=== PATIENT | female | born 1995 | race Caucasian/White ===

== ENCOUNTER 2023-09-30 14:57 | Emergency (ER) | payer OTHER, SELFPAY ==
[2023-09-30 14:59] VITALS: BP 148/83; PULSE 101; RESP 18; TEMP 36.4; O2SAT 100
--- NOTE | 2023-09-30 15:24 | US_ITS ---
INDICATION: pain EXAMINATION: Ultrasound US OB Transvaginal TECHNIQUE: Transvaginal pelvic ultrasound was performed. Grayscale, spectral waveform, and color flow Doppler evaluation of the adnexa. COMPARISON: None. LMP: [08/16/2023 correlating with 6 weeks 3 days gestation estimated delivery date 05/22/2024 Beta-hC FINDINGS: UTERUS: Anteverted uterus 9.2 x 4.6 x 5.9 cm with unremarkable myometrium. Uterine anatomy is difficult to ascertain, favor arcuate over bicornuate on provided images. Small anechoic nabothian cysts RIGHT OVARY: 2.7 x 1.8 x 2.0 cm. Normal parenchymal appearance. Limited Doppler assessment with appreciable peripheral Doppler vascular flow.. LEFT OVARY: 3.3 x 2.2 x 2.9 cm with normal small follicles and preserved internal Doppler vascular flow.. FREE FLUID: None. INTRAUTERINE GESTATIONAL SAC(s) (size/shape): Single fundal gestational sac at the right uterine fundus with surrounding myometrium of 1 cm or greater. Mean sac diameter 0.77 cm correlating with 5 weeks 4 days gestation and estimated delivery date 05/28/2024 YOLK SAC: Single normal yolk sac POLE: No pole is seen.. HEART MOTION: N/A . PLACENTA: Not visualized due to age. SUBCHORIONIC HEMORRHAGE: None. AMNIOTIC FLUID: Qualitatively normal. US/Transvaginal w/Preg US IMPRESSION: Single intrauterine with normal yolk sac. pole not yet seen. dating by mean sac diameter is slightly low but concordant with provided dating. Consider follow-up ultrasound in one to 2 weeks for pole cyst. Normal ovaries. Electronically Signed: Rajan Sanders MD at 17:50 EDT ,
--- NOTE | 2023-09-30 15:25 | ED.VIS.FEGU ---
HPI HPI - Female History of Present Illness Chief Complaint: Informant: patient and spouse/S.O. Narrative Narrative: 28-year-old female presenting to the emergency room abdominal. Patient states that she found out this weekend that she is . On Friday she began to have lower abdominal pain. She states that it is sharp and stabbing across the lower abdomen but worse on the left. States she feels some radiation to the left flank. She notes nausea and vomiting which is not new over the past couple weeks. She notes a normal bowel movement today. No reported fevers. No rashes. She has had prior appendectomy. She saw gynecology in [place] yesterday and had blood work drawn. She states she supposed to go back tomorrow. She states she was advised that she is going to be referred to an seaming inspector and that if her pain persisted to come to emergency. She states that it pain seems worse today. Is worse with walking. She is G1, P0. She denies vaginal bleeding leakage of fluid or abnormal vaginal discharge. She notes a prior gynecologic history of PCOS but is not currently treated for it. [facility] Medical History (Updated 09/30/23 @ 15:30 by Lashaun Ozuna) Anxiety Migraine Allergy/AdvReac Type Severity Reaction Status Date / Time aspirin (ASA) Allergy Hives Verified 09/30/23 14:59 ibuprofen Allergy Hives Verified 09/30/23 14:59 iodine Allergy Hives Verified 09/30/23 14:59 Sulfa (Sulfonamide Allergy Anaphylaxis Verified 09/30/23 14:59 Antibiotics) Family History (Updated 09/30/23 @ 15:30 by Lashaun Ozuna) Father Diabetes Grandmother Ovarian cancer Brain cancer Uncle Brain cancer Social History (Updated 09/30/23 @ 15:30 by Lashaun Ozuna) household members: spouse housing: house Smoking Status: Never smoker ROS ROS ED Constitutional Constitutional ED: Denies chills, fever(s) or weight loss Eyes Eyes: Denies change in vision or diplopia ENT ENT ED: Denies ear pain, rhinorrhea or sore throat Cardiovascular Cardiovascular: Denies chest pain, orthopnea, palpitations or racing heartbeat Respiratory/Chest Respiratory/Chest: Denies cough, dyspnea or orthopnea Gastrointestinal Gastrointestinal: Reports abdominal pain, nausea and vomiting; Denies diarrhea Genitourinary Genitourinary ED: Reports urinary frequency; Denies dysuria or hematuria Musculoskeletal Musculoskeletal: Reports other Details: left flank pain ; Denies arthralgias or myalgias Integumentary Denies abscess or rash Neurologic Neurologic: Denies headache(s) or weakness Psychiatric Psychiatric: Denies anxiety, depression, suicidal ideation or suicidal thoughts Endocrine Endocrinology: Denies polydipsia, polyphagia or polyuria Allergic/Immunologic Allergic/Immunologic ED: Denies mouth swelling, tongue swelling or urticaria EXAM Physical Exam Const Vital Signs: 09/30/23 14:59 09/30/23 17:00 Temperature 97.6 F L Temperature Source Oral Pulse Rate 101 H 100 Respiratory Rate 18 16 Blood Pressure 148/83 H 104/78 Blood Pressure Mean 104 86 Pulse Ox 100 97 Oxygen Delivery Method Room Air Room Air Positive well nourished, well developed and obese General Appearance ED: well developed Nutritional Appearance: obese HEENT Reports normocephalic, head/scalp atraumatic and moist mucous membranes Eyes PERRL and EOMs intact bilaterally Neck no lymphadenopathy, supple and no JVD Resp normal respiratory effort and clear to auscultation bilaterally Cardio regular rate, regular rhythm and no murmurs Rate: other Other Details: Rate 92 bpm on my exam GI GI Narrative: Diffusely tender to palpation throughout the abdomen worse in the left lower abdomen and suprapubic region. Next area of greatest tenderness is in the right upper quadrant. Patient notes pain is worse with standing up and laying down better with sitting. Palpation: soft, tender and guarding; Negative for rigid Back/Spine no CVA tenderness and normal ROM Extremity normal to inspection General Extremety ED: Negative for edema General Extremity: Negative for edema Neuro oriented x3 and CN's II-XII intact bilaterally Sensorium / Orientation: alert Motor Exam: strength 5/5 throughout Psych Mood & Affect: anxious and tearful; Negative for depressed Skin no rashes or lesions noted and no wounds MDM MDM MDM Narrative Medical decision making narrative: Differential diagnosis is very broad for abdominal pain but includes in this instance but not limited to ectopic miscarriage sigmoid diverticulitis ureterolithiasis cystitis colitis volvulus pancreatitis cholelithiasis perforated viscus pelvic infections. White count nonspecifically elevated 11.3 normal differential. BMP showed glucose of 158 liver enzymes showed an AST of 57 ALT is 75 normal bilirubin normal lipase normal alkaline phosphatase quantitative hCG is 2899 urinalysis is contaminated but no overt infection. Pelvic ultrasound shows a bicornate uterus. There is pole on the right. There is no pelvic fluid pelvic mass or ovarian cyst noted. Please see radiologist read. Patient declined pain medication. Using shared decision making we sat and reviewed the differential her blood work urinalysis and ultrasound. I performed a bedside ultrasound to look at her gallbladder. I do not see any pericholecystic fluid or obstructing stones. We talked about performing a CT scan which at this point the patient declines I think is a reasonable choice. Patient will be seeing her cotton tier tomorrow. She is going to talk about whether or not she needs to see MFM given the bicornate uterus. She will establish obstetrics after that visit. History & Record Review Discussion w/independent historian: Patient and Significant other Lab Data Attestation: I reviewed the patient's lab results. Labs: Laboratory Results - last 24 hr 09/30/23 15:50 WBC 11.3 H RBC 4.90 Hgb 14.1 Hct 41.9 MCV 85.5 MCH 28.8 MCHC 33.7 RDW Std Deviation 38.6 RDW Coeff of Otis 12.5 Plt Count 299 MPV 9.4 Immature Gran % (Auto) 0.500 Neut % (Auto) 63.3 Lymph % (Auto) 28.6 [place] % (Auto) 6.2 Eos % (Auto) 1.1 Baso % (Auto) 0.3 Absolute Neuts (auto) 7.2 Absolute Lymphs (auto) 3.24 Nucleated RBC % 0 Platelet Estimate ADEQUATE Plt Morphology Comment LARGE RBC Morphology NORM C+C Anisocytosis RARE Sodium 133 L Potassium 3.5 Chloride 104 Carbon Dioxide 22.0 Anion Gap 7 BUN 7 Creatinine 0.63 Estim Creat Clear Calc 183.25 Est GFR (MDRD) Af Amer 146 Est GFR (MDRD) Non-Af 121 BUN/Creatinine Ratio 11.1 Glucose 158 H Calcium 9.3 Total Bilirubin 0.50 Direct Bilirubin 0.18 AST 57 H ALT 75 H Alkaline Phosphatase 58 Total Protein 8.5 H Albumin 4.0 Globulin 4.5 H Lipase 29 HCG, Quant 2899 H Urine Color Yellow Urine Clarity Clear Urine pH 5.0 Ur Specific [place] 1.025 Urine Protein 30 H Urine Glucose (UA) Normal Urine Ketones 50 H Urine Occult Blood 50 H Urine Nitrite Negative Urine Bilirubin Negative Urine Urobilinogen Normal Ur Leukocyte Esterase 25 H Urine RBC 0 SEEN Urine WBC 0-5 SEEN Ur Squamous Epith Cells 10-25 SEEN Urine Bacteria 1+ Urine Mucus 0 SEEN Blood Type O POSITIVE Radiography Diagnostic Testing: Clinical Impression(s) from Imaging Studies Obstetrics Ultrasound 09/30/23 15:24 IMPRESSION: Single intrauterine with normal yolk sac. pole not yet seen. dating by mean sac diameter is slightly low but concordant with provided dating. Consider follow-up ultrasound in one to 2 weeks for pole cyst. Normal ovaries. Electronically Signed: Rajan Sanders MD at 17:50 EDT , Discharge Plan Triage Chief Complaint: ED Provider: Jae Rahman Dx/Rx/DC Orders Primary Care Provider: Ranulfo Crook Referrals: Ranulfo Crook MD [Primary Care Provider] - Print Language: Arabic
--- NOTE | 2023-09-30 15:38 | ED.RN ---
in room with pt . discussed medications to be given. pt refused
[2023-09-30 16:03] LABS: Mucous, Urine 0 SEEN /hpf (<or=2+); Red Blood Cells-Urine 0 SEEN /hpf (0-5)
[2023-09-30] MEDS: 0.9% Normal Saline (1000mL) 1,000 ML 999 ML IV (16:04)
[2023-09-30] MEDS: Ondansetron 4 MG/2 ML Vial IV (16:05)
[2023-09-30 16:06] VITALS: BMI 39.6
[2023-09-30 16:08] LABS: Absolute Lymphocyte Count 3.24 X10^3/uL (0.83-4.51); Absolute Neutrophil Count 7.2 X10^3/uL (2.0-7.7); Basophil# 0.03 X10^3/uL; Basophil% 0.3 % (0-1); Eosinophil# 0.12 X10^3/uL; Eosinophils% 1.1 % (0-5); Hematocrit 41.9 % (37-47); Hemoglobin 14.1 g/dL (12.0-15.0); Lymphocyte # 3.24 X10^3/ul (0.83-4.51); Lymphocyte % 28.6 % (19-41); Mean Corp Hgb Conc 33.7 g/dL (32-36); Mean Corpuscular Hgb 28.8 pg (27.0-32.0); Mean Corpuscular Volume 85.5 fL (81-99); Mean Platelet Vol. 9.4 fl (6.2-12.0); Monocyte% 6.2 % (0-10); NRBC Flagged by Analyzer 0 % (0-5); Neutrophil # 7.19 X10^3/uL (2.7-7.7); Neutrophil % 63.3 % (47-70); POSITIVE COUNT YES; Platelet Count 299 K/mm3 (150-450); RBC Distribution Width CV 12.5 % (11.6-14.6); RBC Distribution Width SD 38.6 fl (35.1-43.9); White Blood Count 11.3 K/mm3 (4.4-11.0)
[2023-09-30 16:15] LABS: Color, Urine Yellow (Yellow); Glucose, Dipstick Normal (Normal); Ketone-Dipstick 50 mg/dl (Negative); Leukocyte Esterase-Dipstick 25 /ul (Negative); Nitrite-Dipstick Negative (Negative); Occult Blood-Urine 50 /ul (Negative); Protein-Dipstick 30 mg/dl (Negative); Specific Gravity, Urine 1.025 (1.002-1.030); Urine Bilirubin Dipstick Negative (Negative); Urine Clarity Clear (Clear); Urine Urobilinogen Normal (Normal)
[2023-09-30 16:26] LABS: AST(SGOT) 57 U/L (15-37); Alanine Aminotransfer ALT/SGPT 75 U/L (13-56); Alkaline Phosphatase 58 U/L (45-117); Anion Gap 7 (5-15); BUN 7 mg/dL (7-18); BUN/Creat Ratio 11.1 RATIO (10-20); Bilirubin, Direct 0.18 mg/dL (0.00-0.30); Calcium,Total 9.3 mg/dL (8.5-10.1); Chloride 104 mmol/L (98-107); Creatinine, Serum 0.63 mg/dL (0.55-1.02); EST Glomerular Filtration Rate 121 mL/min (>60); Est Glom Filt Rate - Afr Amer 146 mL/min (>60); Estimated Creatinine Clearance 183.25 ml/min; Globulin 4.5 g/dL (2.2-4.2); Glucose 158 mg/dL (74-106); Lipase 29 U/L (13-75); Potassium 3.5 mmol/L (3.5-5.1); Protein, Total 8.5 g/dL (6.4-8.2); Sodium Level 133 mmol/L (136-145)
[2023-09-30 16:31] LABS: Bacteria 1+ /hpf (None Seen); Squamous Epithelial Cells - UA 10-25 SEEN /hpf (5-10); White Blood Cells 0-5 SEEN /hpf (0-5)
[2023-09-30 16:45] LABS: hCG Titer Quant., Serum 2899 mIU/mL (1-3)
[2023-09-30 17:00] VITALS: BP 104/78; PULSE 100; RESP 16; O2SAT 97
[2023-09-30 17:09] LABS: Differential Indicated SCAN CRITERIA MET
[2023-09-30 17:12] LABS: Anisocytosis RARE; Platelet Estimate ADEQUATE (ADEQ); Platelet Morphology LARGE; Red Cell Morphology NORM C+C NORMAL (NORM C&C)
[2023-09-30 18:32] VITALS: BP 104/78; PULSE 100; RESP 16; TEMP 36.7; O2SAT 97
== END 2023-09-30 18:33 | disposition home or self-care (01) ==
PROVIDERS: Emergency Provider Emergency Medicine; PCP Family Medicine; Visit Provider Emergency Medicine
DX: O99.891 Other specified diseases and conditions complicating pregnancy (principal); Z90.49 Acquired absence of other specified parts of digestive tract; R10.30 Lower abdominal pain, unspecified; Z3A.01 Less than 8 weeks gestation of pregnancy; O21.9 Vomiting of pregnancy, unspecified; R10.11 Right upper quadrant pain
CPT/HCPCS: 76817; 80048; 80076; 81001; 83690; 84702; 85025; 86900; 86901; 96361; 96374; 99284; J7030; A4216; J2405

== ENCOUNTER 2024-01-30 10:08 | Emergency (ER) | payer OTHER, SELFPAY ==
[2024-01-30 10:09] VITALS: BP 135/103; PULSE 91; RESP 16; TEMP 37; O2SAT 97
--- NOTE | 2024-01-30 10:23 | RAD_ITS ---
STUDY: X-RAY - CERVICAL SPINE REASON FOR EXAM: Female, 29 years old. Fall TECHNIQUE: 3 view(s) of the cervical spine were obtained. COMPARISON: None FINDINGS: Normal anterior atlantoaxial articulation. Normal odontoid process. There is reversal of the normal cervical lordosis. Normal vertebral bodies and endplates. Normal disc space heights. Normal visualized intervertebral neuroforamina. The soft tissue structures are unremarkable. RAD/Cerv Spine 2 or 3 Views IMPRESSION: There is reversal of the normal cervical lordosis. Electronically Signed: Evaristo Amin MD at 11:01 EDT ,
--- NOTE | 2024-01-30 10:23 | RAD_ITS ---
STUDY: X-RAY - LEFT KNEE REASON FOR EXAM: Female, 29 years old. Pain following injury. TECHNIQUE: 4 view(s) of the knee. COMPARISON: None. FINDINGS: Normal visualized distal femur. Normal visualized proximal tibia and fibula. Normal proximal tibiofibular articulation. Normal medial femorotibial compartment. Normal lateral femorotibial compartment. Normal patellofemoral articulation. The soft tissue structures are unremarkable. RAD/Knee 4 or More Views IMPRESSION: Normal x-ray examination of the knee. Electronically Signed: Evaristo Amin MD at 11:00 EDT ,
--- NOTE | 2024-01-30 10:24 | EDS_ITS ---
HPI History of Present Illness Chief Complaint: Fall Detail of Chief Complaint: Fall Informant: patient Narrative Narrative: Patient presents to the emergency department after sustaining a fall at home. Patient states that she was letting the dogs out and the dog lead to got tangled she slipped and fell down 3 steps. She think she fell forward but then her shirt got caught on the railing and then she and it came back and struck her he ad on the step. No loss of consciousness. She complains of pain to her neck and left knee as well as right ankle. She was able to bear weight afterwards. Patient not on blood thinners. [facility] Medical History (Updated 01/30/24 @ 11:[address] Tabby Murray DO) Anxiety Migraine Allergy/AdvReac Type Severity Reaction Status Date / Time aspirin (ASA) Allergy Hives Verified 01/30/24 10:13 bee venom protein (honey Allergy Anaphylaxis Verified 01/30/24 10:13 bee) (bee sting) ibuprofen Allergy Hives Verified 01/30/24 10:13 iodine Allergy Hives Verified 01/30/24 10:13 Sulfa (Sulfonamide Allergy Anaphylaxis Verified 01/30/24 10:13 Antibiotics) Family History Father Diabetes Grandmother Ovarian cancer Brain cancer Uncle Brain cancer Social History household members: spouse housing: house Smoking Status: Never smoker ROS ROS ED Review of Systems ROS Unobtainable: other Constitutional Constitutional ED: Reports lethargy; Denies chills, fever(s), sweats or weight loss Eyes Eyes: Denies blurry vision, change in vision or diplopia ENT ENT ED: Denies rhinorrhea or sore throat Cardiovascular Cardiovascular: Denies chest pain, orthopnea or racing heartbeat Respiratory/Chest Respiratory/Chest: Denies cough, dyspnea, dyspnea on exertion, orthopnea or sputum Gastrointestinal Gastrointestinal: Denies abdominal pain, diarrhea, nausea or vomiting Genitourinary Genitourinary ED: Denies dysuria, hematuria or urinary frequency Musculoskeletal Musculoskeletal: Reports neck pain and other Details: Right ankle pain and left knee pain ; Denies arthralgias, back pain or myalgias Integumentary Denies abscess, Abrasions or rash Neurologic Neurologic: Denies headache(s) or weakness Psychiatric Psychiatric: Denies anxiety, depression or suicidal thoughts Endocrine Endocrinology: Denies polydipsia, polyphagia or polyuria Hematologic/Lymphatic Hematologic/Lymphatic: Denies easy bleeding, easy bruising or lymphadenopathy Allergic/Immunologic Allergic/Immunologic ED: Denies mouth swelling, tongue swelling or urticaria EXAM Physical Exam Const Vital Signs: 01/30/24 10:09 01/30/24 10:52 Temperature 98.6 F Temperature Source Oral Pulse Rate 91 Respiratory Rate 16 Respiratory Effort Normal Blood Pressure 135/103 H Blood Pressure Mean 113 Pulse Ox 97 Oxygen Delivery Method Room Air Positive well nourished and well developed General Appearance ED: well developed and NAD HEENT Reports TM's clear and moist mucous membranes normocephalic and atraumatic; Negative for trauma or tenderness Tympanic Membrane ED: Yes TM's clear Eyes PERRL and EOMs intact bilaterally General Eye ED: Negative for pale conjunctiva or scleral icterus Neck no lymphadenopathy, supple and no JVD Neck Narrative: Patient with some mild diffuse tenderness of the cervical spine. There is no e cchymosis or bruising noted. Good range of motion. No bony step-offs or depressions noted. General: tenderness Chest Wall inspection of chest normal and palpation of chest normal Chest: Negative for tenderness Resp normal respiratory effort and clear to auscultation bilaterally Effort and Inspection: Negative for respiratory distress or pain with movement Auscultation: Negative for rhonchi, wheezes or diminished lung sounds Cardio regular rate, regular rhythm, S1 normal heart sound, S2 normal heart sound and no murmurs Peripheral Pulses: pulses 2+ throughout GI normal to inspection, nondistended, normoactive bowel sounds, soft to palpation, non-tender, non-distended and no masses Back/Spine no CVA tenderness and no thoracic nor lumbar tenderness Extremity Extremity Narrative: Left knee-no ecchymosis or bruising. No effusion. Pain with range of motion flexion extension. She does not tolerate ligamentous exam. Neurovascular intact distally. No obvious deformity. Right ankle-patient has some tenderness palpation over the lateral malleolus and anterior byrne. No obvious deformity. There are some mild soft tissue swelling. No pain at the proximal fibular head. No pain at the base of the fifth metatarsal. Neurovascularly intact. General Extremety ED: Negative for edema General Extremity: Negative for edema Neuro oriented x3, CN's II-XII intact bilaterally, no sensory deficits noted and gait normal Sensorium / Orientation: awake, alert, oriented to person, oriented to place and oriented to time Motor Exam: strength 5/5 throughout and strength abnormal Psych mental status grossly normal Skin no rashes or lesions noted and no wounds MDM MDM MDM Narrative Medical decision making narrative: Patient presents after a fall with injury to her head and neck as well as her right ankle and left knee. Clinically she looks well. No external evidence of trauma to her head noted. She had x-rays of the cervical spine as well as the left knee and right ankle and all were negative for fracture or acute process. Patient will be given an air splint for her right ankle and crutches. She will be given a dose of Tylenol and advised use Tylenol for discomfort. Instructed to use ice and elevate extremities. Radiography Diagnostic Testing: Clinical Impression(s) from Imaging Studies Cervical Spine X-Ray 01/30/24 10:23 IMPRESSION: There is reversal of the normal cervical lordosis. Electronically Signed: Evaristo Amin MD at 11:01 EDT , Knee X-Ray 01/30/24 10:23 IMPRESSION: Normal x-ray examination of the knee. Electronically Signed: Evaristo Amin MD at 11:00 EDT , Ankle X-Ray 01/30/24 10:30 IMPRESSION: Normal x-ray examination of the ankle. Electronically Signed: Evaristo Amin MD at 11:00 EDT , Three-view x-rays of the cervical spine obtained interpreted by myself as no evidence of fracture. Radiology in agreement. 4 view x-rays of the left knee obtained interpreted by myself as no evidence of fracture or dislocation. Radiology in agreement. Three-view x-rays of the right ankle obtained interpreted by myself as no evidence of fracture dislocation. Radiology in agreement. Discharge Plan Triage Chief Complaint: Fall ED Provider: Tabby Murray Dx/Rx/DC Orders Clinical Impression: Fall, Closed head injury, Contusion of left knee, Right ankle sprain, Cervical strain Instructions: ED Contusion, Lower Extremity, ED Head Injury (Adult), ED Neck Sprain or Strain, ED Ankle Sprain (Adult) Primary Care Provider: Ranulfo Crook Referrals: Ranulfo Crook MD [Primary Care Provider] - 5-7 Days Print Language: Ivorian Disposition Disposition: Home, Self Care
--- NOTE | 2024-01-30 10:30 | RAD_ITS ---
STUDY: X-RAY - RIGHT ANKLE REASON FOR EXAM: Female, 29 years old. Pain following a fall. TECHNIQUE: 3 view(s) of the ankle. COMPARISON: None. FINDINGS: Normal visualized distal tibia and fibula. Normal medial and lateral malleoli. Normal tibiotalar articulation and ankle mortise. Normal visualized talus and calcaneus. The visualized subtalar, talonavicular, calcaneocuboid and tarsal articulations are normal. The soft tissue structures are unremarkable. RAD/Ankle min 3 Views IMPRESSION: Normal x-ray examination of the ankle. Electronically Signed: Evaristo Amin MD at 11:00 EDT ,
[2024-01-30 11:57] VITALS: BP 134/74; PULSE 81; RESP 16; TEMP 37.2; O2SAT 100
== END 2024-01-30 11:59 | disposition home or self-care (01) ==
PROVIDERS: Emergency Provider Emergency Medicine; PCP Family Medicine; Visit Provider Emergency Medicine
DX: S09.90XA Unspecified injury of head, initial encounter (principal); W10.9XXA Fall (on) (from) unspecified stairs and steps, initial encounter; S16.1XXA Strain of muscle, fascia and tendon at neck level, initial encounter; S80.02XA Contusion of left knee, initial encounter; S93.401A Sprain of unspecified ligament of right ankle, initial encounter; Y93.K9 Activity, other involving animal care; Y92.009 Unspecified place in unspecified non-institutional (private) residence as the place of occurrence of the external cause
CPT/HCPCS: 72040; 73564; 73610; 99284

== ENCOUNTER 2025-02-15 15:16 | Emergency (ER) | payer OTHER, SELFPAY ==
[2025-02-15] VITALS (13 sets, daily range): BP systolic 106–140; BP diastolic 61–89; PULSE 86–115; RESP 16–31; TEMP 37; O2SAT 94–100; BMI 39.2
--- NOTE | 2025-02-15 15:48 | RAD_ITS ---
PROCEDURE: RAD/Chest 1 View (Portable)
--- NOTE | 2025-02-15 15:52 | ED.VIS.CHEST ---
HPI History of Present Illness Chief Complaint: Chest Pain Detail of Chief Complaint: Intermittent right-sided chest pain for the past 2 weeks Informant: patient Onset/Context/Timing Onset: Weeks (2 weeks) Activity at onset: sudden Timing: Intermittent and Lasts (1 to many hours) Quality: Positive for Sharp Location: Right Parasternal (Today was different because it radiated to the left side) Current Severity: Mild Maximum Severity: Moderate Worsened By: Nothing Relieved By: Nothing Associated Symptoms: Positive for Diaphoresis and Dyspnea; Negative for Nausea, Vomiting, Cough, Lightheadedness, Acid Reflux or Palpitations Narrative Narrative: Patient is a 30-year-old woman. She has no significant past medical history. She denies history of GERD, peptic ulcer disease or hiatal hernia. She has had intermittent right sided sharp chest pain for the past 2 weeks lasting between 1 to multiple hours. Episode today started at noon. Concerned was that it radiates to the left side. She states she may have been slightly short of breath and may have been slightly warm/sweaty. Did not radiate to her shoulders, arms, neck or jaw. Did not radiate through to her back. She denies intolerance to any type of food. She denies black or maroon-colored stool. She has no history of VTE. She has no risk factors for VTE. She denies leg pain, swelling or discoloration. She is presently having discomfort. She states it is a heartburn sensation presently. Prior Similar Symptoms: No Recent Illness/Hospitalization: No CVD Risk Factors: Negative for Hypertension, Diabetes, Hypercholesterolemia, Family History 1' </=55 or Smoking PE Risk Factors: Negative for Recent Travel/Surgery, Recent Immobilization, Prior DVT or PE, Cancer or OCP + Smoking + >/=35 TAD Risk Factors: Negative for Marfan's Syndrome, Hypertension or Family History [facility] Medical History Anxiety Migraine Home Medications ?Medication ?Instructions ?Recorded ?Last Taken ?Type omeprazole 40 mg capsule,delayed 40 mg PO DAILY #30 caps 02/15/25 Unknown Rx release Allergy/AdvReac Type Severity Reaction Status Date / Time aspirin (ASA) Allergy Hives Verified 02/15/25 15:20 bee venom protein (honey Allergy Anaphylaxis Verified 02/15/25 15:20 bee) (bee sting) ibuprofen Allergy Hives Verified 02/15/25 15:20 iodine Allergy Hives Verified 02/15/25 15:20 Sulfa (Sulfonamide Allergy Anaphylaxis Verified 02/15/25 15:20 Antibiotics) Family History Father Diabetes Grandmother Ovarian cancer Brain cancer Uncle Brain cancer Social History household members: spouse housing: house Smoking Status: Never smoker ROS ROS ED Constitutional Constitutional ED: Denies chills, fever(s), subjective, sweats or weight loss Eyes Eyes: Reports none ENT ENT ED: Denies ear pain or rhinorrhea Cardiovascular Cardiovascular: Reports as per HPI; Denies orthopnea or paroxysmal nocturnal dyspnea Respiratory/Chest Respiratory/Chest: Reports dyspnea; Denies cough, dyspnea on exertion, orthopnea or paroxysmal nocturnal dyspnea Gastrointestinal Gastrointestinal: Denies abdominal pain, constipation, diarrhea, melena, nausea or vomiting Genitourinary Genitourinary ED: Denies dysuria, hematuria or urinary frequency Musculoskeletal Musculoskeletal: Denies arthralgias, back pain, myalgias or neck pain Integumentary Denies rash Neurologic Neurologic: Denies paresthesias or weakness Endocrine Endocrinology: Denies cold intolerance or heat intolerance Hematologic/Lymphatic Hematologic/Lymphatic: Denies easy bleeding or easy bruising EXAM Physical Exam Const Vital Signs: 02/15/25 15:17 02/15/25 15:20 02/15/25 15:34 Temperature 98.6 F Temperature Source Oral Pulse Rate 99 Respiratory Rate 17 Respiratory Effort Normal Non-Labored Blood Pressure 140/84 H Blood Pressure Mean 102 Pulse Ox 100 Oxygen Delivery Method Room Air Room Air 02/15/25 15:58 02/15/25 16:00 02/15/25 16:01 Temperature Temperature Source Pulse Rate 105 H 93 86 Respiratory Rate 29 H 27 H 23 H Respiratory Effort Blood Pressure 128/72 H Blood Pressure Mean 87 Pulse Ox 95 94 Oxygen Delivery Method 02/15/25 16:15 02/15/25 16:30 02/15/25 16:45 Temperature Temperature Source Pulse Rate 115 H 94 102 H Respiratory Rate 31 H 19 H 17 Respiratory Effort Blood Pressure 117/89 H 112/78 127/84 H Blood Pressure Mean 94 87 98 Pulse Ox 96 97 99 Oxygen Delivery Method 02/15/25 17:00 02/15/25 17:15 02/15/25 17:30 Temperature Temperature Source Pulse Rate 92 93 93 Respiratory Rate 21 H 16 29 H Respiratory Effort Blood Pressure 122/82 H 122/75 H Blood Pressure Mean 93 89 Pulse Ox 96 94 96 Oxygen Delivery Method 02/15/25 17:45 02/15/25 18:00 Temperature Temperature Source Pulse Rate 92 91 Respiratory Rate 22 H 19 H Respiratory Effort Blood Pressure 106/61 Blood Pressure Mean 76 Pulse Ox 94 95 Oxygen Delivery Method Positive well nourished and well developed Constitutional Narrative: Vital signs remarkable slight elevation blood pressure of 140/84. Patient denies a history hypertension. BMI is 39.2. General Appearance ED: well developed; Negative for pallor HEENT Reports moist mucous membranes normocephalic and atraumatic Eyes PERRL and EOMs intact bilaterally General Eye ED: Negative for pale conjunctiva or scleral icterus Neck no lymphadenopathy, supple and no JVD Chest Wall inspection of chest normal and palpation of chest normal Resp normal respiratory effort and clear to auscultation bilaterally Cardio regular rate, regular rhythm, S1 normal heart sound, S2 normal heart sound and no murmurs Peripheral Pulses: pulses 2+ throughout GI normal to inspection, nondistended, normoactive bowel sounds, soft to palpation, non-tender, non-distended and no masses; Negative for hepatosplenomegaly Back/Spine no CVA tenderness and no thoracic nor lumbar tenderness Extremity normal to inspection Neuro oriented x3, CN's II-XII intact bilaterally, no sensory deficits noted and gait normal Sensorium / Orientation: awake and alert Motor Exam: strength 5/5 throughout Psych mental status grossly normal Skin no rashes or lesions noted and no wounds General Skin Exam: Negative for jaundice or pallor MDM MDM MDM Narrative Medical decision making narrative: Patient with atypical chest pain. This may be GI etiology versus cardiac versus noncardiac i.e. pulmonary. History is not consistent with thoracic aortic dissection or pulmonary embolus. Patient is PERC negative. Lab Data Attestation: I reviewed the patient's lab results. Lab results narrative: White count slightly elevated 11.8. There is no shift. H&H and indices are normal. Patient metabolic panel is remarked for glucose of 206 with a normal CO2 anion gap. Patient does not have a history of diabetes. 1st and 2nd troponin are less than 6. Labs: Laboratory Results - last 24 hr 02/15/25 02/15/25 13:40 17:30 WBC 11.8 H RBC 4.96 Hgb 14.5 Hct 42.1 MCV 84.9 MCH 29.2 MCHC 34.4 RDW Std Deviation 37.3 RDW Coeff of Otis 12.3 Plt Count 334 MPV 9.2 Immature Gran % (Auto) 0.600 Neut % (Auto) 64.3 Lymph % (Auto) 27.7 [place] % (Auto) 6.3 Eos % (Auto) 0.7 Baso % (Auto) 0.4 Absolute Neuts (auto) 7.6 Absolute Lymphs (auto) 3.27 Nucleated RBC % 0 Sodium 134 Potassium 3.8 Chloride 100 Carbon Dioxide 22.1 Anion Gap 11 BUN 8 Creatinine 0.49 L Estim Creat Clear Calc 229.74 Est GFR (MDRD) Non-Af 131 BUN/Creatinine Ratio 17.1 Glucose 206 H Calcium 8.8 Troponin T High Sens < 6 Troponin T Hi Sens 2 Hr < 6 Radiography Chest X-Ray - ED: 1 View, Read by ED Physician (Read by me at 1602.), Normal, Heart, Lungs, Mediastinum, Bony Structures and No Acute Disease Diagnostic Testing: Clinical Impression(s) from Imaging Studies Chest X-Ray 02/15/25 15:48 IMPRESSION: No acute findings. Azygous lobe, an anatomic variant. 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 Her symptoms had improved with a GI cocktail. Her indigestion is returning. She was treated with IV Pepcid. She was discharged prescription for omeprazole and instructed follow-up with her doctor since her blood sugar was greater than 200. Discharge Plan Triage Chief Complaint: Chest Pain ED Provider: Kaylen Hesso Dx/Rx/DC Orders Clinical Impression: Heartburn, Non-cardiac chest pain, Acid reflux, Nondiabetic hyperglycemia, Elevated blood pressure reading Instructions: ED GERD (Adult), ED Hyperglycemia New Poss Diabetes Prescriptions: New omeprazole 40 mg capsule,delayed release(DR/EC) 40 mg PO DAILY Qty: 30 0RF Primary Care Provider: Ranulfo Crook Referrals: Ranulfo Crook MD [Primary Care Provider, Family Practice] - 3-5 Days Print Language: Latvian Disposition Disposition: Home, Self Care
[2025-02-15 15:54] LABS: Hematocrit 42.1 % (37-47); Hemoglobin 14.5 g/dL (12.0-15.0); Immature Granulocytes Count 0.070 X10^3/uL (0.0-0.0); Mean Corp Hgb Conc 34.4 g/dL (32-36); Mean Corpuscular Volume 84.9 fL (81-99); Mean Platelet Vol. 9.2 fl (6.2-12.0); NRBC Flagged by Analyzer 0 % (0-5); Platelet Count 334 K/mm3 (150-450); RBC Distribution Width CV 12.3 % (11.6-14.6); RBC Distribution Width SD 37.3 fl (35.1-43.9); Red Blood Count 4.96 M/mm3 (4.2-5.4); White Blood Count 11.8 K/mm3 (4.4-11.0)
[2025-02-15] MEDS: Lidocaine 2% Viscous15 ML UDC 15 ML PO (16:02)
[2025-02-15 16:19] LABS: Troponin T High Sensitivity < 6 ng/L (<=14)
[2025-02-15 16:20] LABS: Anion Gap 11 (5-15); BUN 8 mg/dL (4-19); BUN/Creat Ratio 17.1 RATIO (10-20); Calcium,Total 8.8 mg/dL (7.6-11.0); Carbon Dioxide 22.1 mmol/L (21.0-32.0); Chloride 100 mmol/L (98-108); Estimated Creatinine Clearance 229.74 ml/min (50-250); Glucose 206 mg/dL (70-99); Potassium 3.8 mmol/L (3.3-5.1)
[2025-02-15] MEDS: Famotidine 200 MG/20 ML MDV 20 MG in 0.9% Normal Saline (Pres. free 8 ML 300 MG IV (17:59)
[2025-02-15 18:01] LABS: Troponin T High Sens 2 HR < 6 ng/L (<=14)
== END 2025-02-15 18:32 | disposition home or self-care (01) ==
PROVIDERS: Emergency Provider Emergency Medicine; PCP Family Medicine; Visit Provider Emergency Medicine
DX: R07.89 Other chest pain (principal); K21.9 Gastro-esophageal reflux disease without esophagitis; R03.0 Elevated blood-pressure reading, without diagnosis of hypertension; R73.9 Hyperglycemia, unspecified; R12 Heartburn
CPT/HCPCS: 71045; 80048; 84484; 85025; 93005; 96374; 99285; A4216

== ENCOUNTER → 2025-02-18 | Outpatient (CLI) | payer OTHER, SELFPAY ==
[2025-02-18 09:36] LABS: hCG Titer Quant., Serum 230 mIU/mL (<9 non-preg)
== END | disposition home or self-care (01) ==
LOC: LAB 08:26
PROVIDERS: PCP Family Medicine; Referring Provider Obstetrics & Gynecology; Visit Provider Obstetrics & Gynecology
DX: N91.2 Amenorrhea, unspecified (principal)
CPT/HCPCS: 36415; 84702

== ENCOUNTER → 2025-02-20 | Outpatient (CLI) | payer OTHER, SELFPAY ==
[2025-02-20 09:22] LABS: hCG Titer Quant., Serum 514 mIU/mL (<9 non-preg)
== END | disposition home or self-care (01) ==
LOC: LAB 08:16
PROVIDERS: PCP Family Medicine; Referring Provider Obstetrics & Gynecology; Visit Provider Obstetrics & Gynecology
DX: N91.2 Amenorrhea, unspecified (principal)
CPT/HCPCS: 36415; 84702

== ENCOUNTER 2025-02-22 12:51 | Emergency (ER) | payer OTHER, SELFPAY ==
[2025-02-22 12:53] VITALS: BP 155/89; PULSE 115; RESP 18; TEMP 35.8; O2SAT 99; BMI 37.5
--- NOTE | 2025-02-22 13:49 | US_ITS ---
PROCEDURE: US/Transvaginal w/Preg US
--- NOTE | 2025-02-22 13:50 | ED.VIS.FEGU ---
HPI HPI - Female History of Present Illness Chief Complaint: Detail of Chief Complaint: and vaginal bleeding Informant: patient and spouse/S.O. Narrative Narrative: Patient presents to the emergency department with complaint of and intermittent abdominal discomfort since yesterday. Today when she wiped she noticed some blood on the toilet paper. She had some pain earlier in the day on her right side and now seems to be moved to the left side of her abdomen. She had nausea and vomited once. Patient had a miscarriage a little over a year ago. She is G2, P0. Last menstrual period was January 10. [facility] Medical History Anxiety Migraine Home Medications ?Medication ?Instructions ?Recorded ?Last Taken ?Type omeprazole 40 mg capsule,delayed 40 mg PO DAILY #30 caps 02/15/25 Unknown Rx release Allergy/AdvReac Type Severity Reaction Status Date / Time aspirin (ASA) Allergy Hives Verified 02/22/25 12:52 bee venom protein (honey Allergy Anaphylaxis Verified 02/22/25 12:52 bee) (bee sting) ibuprofen Allergy Hives Verified 02/22/25 12:52 iodine Allergy Hives Verified 02/22/25 12:52 Sulfa (Sulfonamide Allergy Anaphylaxis Verified 02/22/25 12:52 Antibiotics) Family History Father Diabetes Grandmother Ovarian cancer Brain cancer Uncle Brain cancer Social History household members: spouse housing: house Smoking Status: Never smoker ROS ROS ED Review of Systems ROS Unobtainable: other Constitutional Constitutional ED: Reports lethargy; Denies chills, fever(s), sweats or weight loss Eyes Eyes: Denies blurry vision, change in vision or diplopia ENT ENT ED: Denies rhinorrhea or sore throat Cardiovascular Cardiovascular: Denies chest pain, orthopnea or racing heartbeat Respiratory/Chest Respiratory/Chest: Denies cough, dyspnea, dyspnea on exertion, orthopnea or sputum Gastrointestinal Gastrointestinal: Reports abdominal pain; Denies diarrhea, nausea or vomiting Genitourinary Genitourinary ED: Reports urinary frequency and other Details: Vaginal bleeding ; Denies dysuria or hematuria Musculoskeletal Musculoskeletal: Denies arthralgias, back pain, myalgias or neck pain Integumentary Denies abscess, Abrasions or rash Neurologic Neurologic: Denies headache(s) or weakness Psychiatric Psychiatric: Denies anxiety, depression or suicidal thoughts Endocrine Endocrinology: Denies polydipsia, polyphagia or polyuria Hematologic/Lymphatic Hematologic/Lymphatic: Denies easy bleeding, easy bruising or lymphadenopathy Allergic/Immunologic Allergic/Immunologic ED: Denies mouth swelling, tongue swelling or urticaria EXAM Physical Exam Const Vital Signs: 02/22/25 12:53 Temperature 96.5 F L Temperature Source Temporal Pulse Rate 115 H Respiratory Rate 18 Blood Pressure 155/89 H Blood Pressure Mean 111 Pulse Ox 99 Oxygen Delivery Method Room Air Positive well nourished and well developed General Appearance ED: well developed and NAD HEENT Denies TM's clear or moist mucous membranes normocephalic and atraumatic; Negative for trauma or tenderness Tympanic Membrane ED: Negative for TM's clear Eyes PERRL and EOMs intact bilaterally General Eye ED: Negative for pale conjunctiva or scleral icterus Neck no lymphadenopathy, supple and no JVD General: Negative for tenderness Chest Wall inspection of chest normal and palpation of chest normal Chest: Negative for tenderness Resp normal respiratory effort and clear to auscultation bilaterally Effort and Inspection: Negative for respiratory distress or pain with movement Auscultation: Negative for rhonchi, wheezes or diminished lung sounds Cardio regular rate, regular rhythm, S1 normal heart sound, S2 normal heart sound and no murmurs Peripheral Pulses: pulses 2+ throughout GI normal to inspection, nondistended, normoactive bowel sounds, soft to palpation, non-distended and no masses GI Narrative: Mild tenderness over the suprapubic region and left lower quadrant. There is no rebound, rigidity, or peritoneal signs. No mass palpated Back/Spine no CVA tenderness and no thoracic nor lumbar tenderness Extremity normal to inspection General Extremety ED: Negative for edema General Extremity: Negative for edema Neuro oriented x3, CN's II-XII intact bilaterally, no sensory deficits noted and gait normal Sensorium / Orientation: awake, alert, oriented to person, oriented to place and oriented to time Motor Exam: strength 5/5 throughout and strength abnormal Psych mental status grossly normal Skin no rashes or lesions noted and no wounds MDM MDM MDM Narrative Medical decision making narrative: Patient presents with pelvic pain and mild vaginal bleeding. She believes she is about 6 weeks with history of miscarriage little over a year ago. Clinically looks well. IV line established. CBC with differential count 14.1 with hemoglobin 14.8 and platelet count of 387. Chemistries unremarkable. Quantitative hCG was 1106. This is a normal doubling from 2 days ago. Urinalysis unremarkable. Blood type is O+. Patient had a pelvic ultrasound that showed a right ovarian mass which was likely a corpus luteum cyst. Less likely ectopic. Patient also noted to have small fluid collection shown in the uterine cavity no yolk sac or pole seen. Differential includes early versus ectopic with pseudosac. Recommended close follow-up. Will discuss case with F[employer]CRU[employer]ER on-call. Patient will need close follow-up. Discussed case with Dr. Barbosa who will have her office contact patient for follow-up appointment. Patient advised to return if worsening pain, persistent heavy bleeding, or condition should worsen anyway. Lab Data Attestation: I reviewed the patient's lab results. Labs: Laboratory Results - last 24 hr 02/22/25 02/22/25 13:54 13:56 WBC 14.1 H RBC 5.15 Hgb 14.8 Hct 42.9 MCV 83.3 MCH 28.7 MCHC 34.5 RDW Std Deviation 36.9 RDW Coeff of Otis 12.1 Plt Count 387 MPV 9.1 Immature Gran % (Auto) 0.800 Neut % (Auto) 71.5 H Lymph % (Auto) 21.5 [place] % (Auto) 5.6 Eos % (Auto) 0.4 Baso % (Auto) 0.2 Absolute Neuts (auto) 10.1 H Absolute Lymphs (auto) 3.03 Nucleated RBC % 0 HCG, Quant 1106 H Urine Color Yellow Urine Clarity Sl. Cloudy Urine pH 6.0 Ur Specific [place] 1.025 Urine Protein 30 H Urine Glucose (UA) Normal Urine Ketones 50 H Urine Occult Blood 50 H Urine Nitrite Negative Urine Bilirubin Negative Urine Urobilinogen Normal Ur Leukocyte Esterase Negative Urine RBC 0 SEEN Urine WBC 0-5 SEEN Ur Squamous Epith Cells 5-10 SEEN Urine Bacteria RARE Urine Mucus 0 SEEN Blood Type O POSITIVE Radiography Diagnostic Testing: Clinical Impression(s) from Imaging Studies Obstetrics Ultrasound 02/22/25 13:49 IMPRESSION: Small fluid collection is shown in the uterine cavity. No yolk sac or pole seen. Differential considerations include early intrauterine with a gestational age of 5 weeks, 2 days Alternatively, ectopic with pseudo sac. Close clinical follow-up, gynecologic consultation suggested along with serial beta HCG. Repeat imaging in 7-10 days to show a pole and heartbeat is suggested. Right ovarian mass. Possible corpus luteum. Ectopic is favored less but not excluded. Continued surveillance suggested. Reading Location: [facility] Discharge Plan Triage Chief Complaint: ED Provider: Tabby Murray Dx/Rx/DC Orders Clinical Impression: First trimester , , threatened Instructions: Bleeding During Early , ED Abdominal Pain, Early , Miscarriage Threatened Prescriptions: No Action omeprazole 40 mg capsule,delayed release(DR/EC) 40 mg PO DAILY Qty: 30 0RF Primary Care Provider: Ranulfo Crook Referrals: Ranulfo Crook MD [Primary Care Provider, Family Practice] Jennifer Galicia DO [Med Staff - Active Staff, Obstetrics-Gynecology (OBGYN)] - 5-7 Days Print Language: Macedonian Disposition Disposition: Home, Self Care
[2025-02-22 14:01] LABS: Mucous, Urine 0 SEEN /hpf (<or=2+); Red Blood Cells-Urine 0 SEEN /hpf (0-5)
[2025-02-22 14:03] LABS: Hematocrit 42.9 % (37-47); Hemoglobin 14.8 g/dL (12.0-15.0); Immature Granulocytes Count 0.120 X10^3/uL (0.0-0.0); Mean Corp Hgb Conc 34.5 g/dL (32-36); Mean Corpuscular Volume 83.3 fL (81-99); Mean Platelet Vol. 9.1 fl (6.2-12.0); NRBC Flagged by Analyzer 0 % (0-5); Platelet Count 387 K/mm3 (150-450); RBC Distribution Width CV 12.1 % (11.6-14.6); RBC Distribution Width SD 36.9 fl (35.1-43.9); Red Blood Count 5.15 M/mm3 (4.2-5.4); White Blood Count 14.1 K/mm3 (4.4-11.0)
[2025-02-22 14:06] LABS: Color, Urine Yellow (Yellow); Glucose, Dipstick Normal (Normal); Ketone-Dipstick 50 mg/dl (Negative); Leukocyte Esterase-Dipstick Negative /ul (Negative); Nitrite-Dipstick Negative (Negative); Occult Blood-Urine 50 /ul (Negative); Protein-Dipstick 30 mg/dl (Negative); Specific Gravity, Urine 1.025 (1.002-1.030); Urine Bilirubin Dipstick Negative (Negative)
[2025-02-22 14:11] LABS: Squamous Epithelial Cells - UA 5-10 SEEN /hpf (5-10)
[2025-02-22 14:27] LABS: hCG Titer Quant., Serum 1106 mIU/mL (<9 non-preg)
[2025-02-22 15:25] VITALS: BP 124/66; PULSE 78; RESP 16; TEMP 36.6; O2SAT 99
== END 2025-02-22 15:26 | disposition home or self-care (01) ==
PROVIDERS: Emergency Provider Emergency Medicine; PCP Family Medicine; Visit Provider Emergency Medicine
DX: O20.0 Threatened abortion (principal); Z3A.01 Less than 8 weeks gestation of pregnancy
CPT/HCPCS: 76817; 81001; 84702; 85025; 86900; 86901; 99283

== ENCOUNTER → 2025-02-24 | Outpatient (CLI) | payer OTHER, SELFPAY ==
[2025-02-24 09:44] LABS: hCG Titer Quant., Serum 2120 mIU/mL (<9 non-preg)
== END | disposition home or self-care (01) ==
LOC: LAB 08:19
PROVIDERS: PCP Family Medicine; Referring Provider Obstetrics & Gynecology; Visit Provider Obstetrics & Gynecology
DX: O20.0 Threatened abortion (principal); Z3A.00 Weeks of gestation of pregnancy not specified
CPT/HCPCS: 36415; 84702

== ENCOUNTER → 2025-02-26 | Outpatient (CLI) | payer OTHER, SELFPAY ==
[2025-02-26 10:04] LABS: hCG Titer Quant., Serum 3327 mIU/mL (<9 non-preg)
== END | disposition home or self-care (01) ==
LOC: LAB 08:26
PROVIDERS: PCP Family Medicine; Referring Provider Obstetrics & Gynecology; Visit Provider Obstetrics & Gynecology
DX: O20.0 Threatened abortion (principal); Z3A.00 Weeks of gestation of pregnancy not specified
CPT/HCPCS: 36415; 84702

== ENCOUNTER → 2025-02-28 | Outpatient (CLI) | payer OTHER, SELFPAY ==
[2025-02-28 09:44] LABS: Hematocrit 43.0 % (37-47); Hemoglobin 14.9 g/dL (12.0-15.0); Immature Granulocytes Count 0.090 X10^3/uL (0.0-0.0); Mean Corp Hgb Conc 34.7 g/dL (32-36); Mean Corpuscular Volume 83.3 fL (81-99); Mean Platelet Vol. 9.3 fl (6.2-12.0); NRBC Flagged by Analyzer 0 % (0-5); Platelet Count 381 K/mm3 (150-450); RBC Distribution Width CV 12.2 % (11.6-14.6); RBC Distribution Width SD 37.2 fl (35.1-43.9); Red Blood Count 5.16 M/mm3 (4.2-5.4); White Blood Count 12.2 K/mm3 (4.4-11.0)
[2025-02-28 10:07] LABS: AST(SGOT) 58 U/L (<=31); Alanine Aminotransfer ALT/SGPT 93 U/L (<=34); Albumin, Serum 4.7 g/dL (3.5-5.0); Alkaline Phosphatase 54 U/L (35-104); Anion Gap 16 (5-15); BUN 8 mg/dL (4-19); BUN/Creat Ratio 12.9 RATIO (10-20); Calcium,Total 9.9 mg/dL (7.6-11.0); Carbon Dioxide 18.2 mmol/L (21.0-32.0); Chloride 100 mmol/L (98-108); Globulin 3.4 g/dL (2.2-4.2); Glucose 217 mg/dL (70-99); Potassium 3.8 mmol/L (3.3-5.1); hCG Titer Quant., Serum 5134 mIU/mL (<9 non-preg)
== END | disposition home or self-care (01) ==
PROVIDERS: Obstetrics & Gynecology; PCP Family Medicine; Visit Provider Obstetrics & Gynecology
DX: O20.0 Threatened abortion (principal); Z3A.00 Weeks of gestation of pregnancy not specified
CPT/HCPCS: 36415; 80053; 83036; 84443; 84702; 85025

== ENCOUNTER 2025-03-08 10:55 | Emergency (ER) | payer OTHER, SELFPAY ==
[2025-03-08 10:56] VITALS: BP 134/99; PULSE 104; RESP 18; TEMP 36.6; O2SAT 100; BMI 35.7
--- NOTE | 2025-03-08 11:11 | US_ITS ---
PROCEDURE: TRANSVAGINAL W/PREG US 03/08/2025 REASON FOR EXAM: VAGINAL BLEEDING AND CRAMPING, PRIOR ULTRASOUND RE TECHNIQUE: Procedure Code: [id number] Modality: US Procedure: TRANSVAGINAL W/PREG US COMPARISON: 02/22/2025 FINDINGS There is a single live intrauterine noted. Heart rate noted at 135 beats per minute. [place]-rump length measures 6 mm corresponding to an ultrasound dating of 6 weeks 4 days, for an estimated date of delivery of 10/29/2025. The gestational sac measures 1.5 cm and contains a yolk sac measuring 3 mm. The uterus measures 10.3 x 6.8 x 5.4 cm. Cervix is closed, no fibroids. Right ovary measures 3.3 x 3.3 x 3.5 cm with a likely corpus luteal cyst measuring 2.4 cm. Left ovary is not visualized, no free fluid US/Transvaginal w/Preg US IMPRESSION: Single live intrauterine at 6 weeks 3 days by current ultrasound with ANN of 10/29/2025. Heart rate at 135 beats per minute. No suspicious sonographic findings. Reading Location: [id number]
[2025-03-08 11:13] VITALS: BP 123/74; PULSE 125; RESP 17; O2SAT 99
[2025-03-08 12:44] VITALS: BP 111/81; PULSE 73; RESP 16; O2SAT 97
--- NOTE | 2025-03-08 13:15 | EDS_ITS ---
HPI HPI - Female History of Present Illness Chief Complaint: Vag Bld, Preg Detail of Chief Complaint: Vaginal bleeding this morning Informant: patient and spouse/S.O. Pain Pain: Positive for Pelvic Pain Onset: Today and Yesterday Context: Gradual Onset Timing: Continuous and Waxes and wanes Quality: Positive for Cramping Location: - (Initially right adnexal now bilateral) Current Severity: Mild Maximum Severity: Moderate Worsened by: - (Nothing) Bleeding Issue: Positive for Vaginal bleeding Current Severity: Heavy Maximum Severity: Heavy Associated Symptoms Associated Symptoms: Positive for Frequency and Missed Period; Negative for Dysuria, Urgency or Hematuria Test: Positive Sexually: Positive for Active Control: No control P: 0 Ab: 0 Narrative Narrative: Patient is a 30-year-old Ab1 female who presents with vaginal bleeding that started abruptly this morning. She states she passed clots. She is concerned she is having a miscarriage. She had a miscarriage October 2023. She states she and her are trying to get and apparently had a ultrasound that revealed intrauterine last week. Patient is very anxious at this time. She has Rh+ blood. (Blood type O+) patient is complaining of some mild bilateral cramping pain. Initially was right lower quadrant cramping pain. Patient denies pain referred to her shoulder or back. Patient denies orthostatic symptoms. Patient denies dyspnea or dyspnea with act ivity. Prior similar symptoms: Yes (Miscarriage October of last year) Recent Illness/Hospitalization: No PFSH PFSH Medical History Bicornate uterus Polycystic ovarian syndrome Anxiety Migraine Home Medications ?Medication ?Instructions ?Recorded ?Last Taken ?Type PNV no.151-iron 27 mg-folic 800 cap PO 02/28/25 Unknow n History mcg-omega3 260 gd-gup-wfk-fish capsule cholecalciferol (vitamin D3) 25 25 mcg PO QDAY 5 Unknown History mcg (1,000 unit) capsule blood sugar diagnostic (Blood #120 ea 03/02/25 Unknown Rx Glucose Test strips) blood-glucose meter #1 ea 03/02/25 Unknown Rx blood-glucose sensor (Dexcom G7 #1 ea 03/02/25 Unknown Rx Sensor device) blood-glucose,laser cutter,cont #1 ea 03/02/25 Unknown Rx (Dexcom G7 Automobile Damage Field Appraiser) lancets 30 gauge (Droplet Lancets) #200 ea 03/02/25 Un known Rx Allergy/AdvReac Type Severity Reaction Status Date / Time aspirin (ASA) Allergy Hives Verified 03/08/25 10:56 bee venom protein (honey Allergy Anaphylaxis Verified 03/08/25 10:56 bee) (bee sting) ibuprofen Allergy Hives Verified 03/08/25 10:56 iodine Allergy Hives Verified 03/08/25 10:56 Sulfa (Sulfonamide Allergy Anaphylaxis Verified 03/08/25 10:56 Antibiotics) Family History Father Diabetes Grandmother Ovarian cancer Brain cancer Uncle Brain cancer Surgical History Hx of appendectomy H/O dilation and curettage Social History household members: spouse housing: house number of children: 0 current occupational status: employed current occupation: [employer] Smoking Status: Never smoker additional social history: Ifeanyi [employer] ED Constitutional Constitutional ED: Denies chills, fever(s), subjective or sweats Cardiovascular Cardiovascular: Denies chest pain or palpitations Respiratory/Chest Respiratory/Chest: Denies cough, dyspnea or dyspnea on exertion Gastrointestinal Gastrointestinal: Denies abdominal pain, diarrhea, nausea or vomiting Genitourinary Genitourinary ED: Reports urinary frequency; Denies dysuria or hematuria Musculoskeletal Musculoskeletal: Denies arthralgias, myalgias or neck pain Psychiatric Psychiatric: Reports anxiety EXAM Physical Exam Const Vital Signs: 03/08/25 10:56 03/08/25 11:13 03/08/25 12:44 Temperature 98 F Temperature Source Oral Pulse Rate 104 H 125 H 73 Respiratory Rate 18 17 16 Blood Pressure 134/99 H 123/74 H 111/81 H Blood Pressure Mean 110 90 91 Pulse Ox 100 99 97 Oxygen Delivery Method Room Air Room Air Positive well nourished, well developed and obese Constitutional Narrative: Patient is anxious. General Appearance ED: well developed Nutritional Appearance: obese HEENT Reports moist mucous membranes HEENT Narrative: Head is atraumatic and normocephalic. Ears normal. Nares patent. Posterior pharynx is normal Eyes PERRL and EOMs intact bilaterally General Eye ED: Negative for pale conjunctiva Neck no lymphadenopathy, supple and no JVD Chest Wall inspection of chest normal and palpation of chest normal Resp normal respiratory effort and clear to auscultation bilaterally Cardio regular rate, regular rhythm, S1 normal heart sound, no murmurs and no JVD GI normal to inspection, nondistended, normoactive bowel sounds, soft to palpation, non-tender, non-distended and no masses GI Narrative: Limited due to body habitus. Auscultation: normoactive bowel sounds Narrative: External genitalia normal. Vaginal mucosa normal. Positive Sid's sign. No active bleeding noted. Scant amount of blood noted in the vaginal vault. P atient complains of some mild tenderness right adnexa. There is no fullness or mass appreciated. Uterus is slightly enlarged. There is no left adnexal mass or fullness or tenderness. Extremity normal to inspection and full ROM Neuro oriented x3 and CN's II-XII intact bilaterally Sensorium / Orientation: alert Psych Mood & Affect: anxious Skin no rashes or lesions noted and no wounds MDM MDM MDM Narrative Medical decision making narrative: Differential diagnosis is threatened AB versus incomplete AB versus complete AB. Blood type was not obtained since patient has O+ blood. Ultrasound was obtained after performing pelvic exam. Since bleeding started today and there is no active bleeding in my opinion there is no indication for H&H. Radiography Diagnostic Testing: Clinical Impression(s) from Imaging Studies Obstetrics Ultrasound 03/08/25 11:11 IMPRESSION: Single live intrauterine at 6 weeks 3 days by current ultrasound with ANN of 10/29/2025. Heart rate at 135 beats per minute. No suspicious sonographic findings. Reading Location: [id number] Management Discussion w/another healthcare provider: Destination Coordinator (Dr. June Navas's nurse was made aware of patient's presentation and ultrasound results. She will relay this to Dr. June Navas.) Treatment and Re-Evaluation Narrative: Patient was informed of results. She was discharged home with appropriate home- going structures. Discharge Plan Triage Chief Complaint: Vag Bld, Preg ED Provider: HessDao Dx/Rx/DC Orders Clinical Impression: Miscarriage, threatened, early , BMI 35.0-35.9,adult, Elevated liver enzymes Instructions: ED Abdominal Pain, Early Prescriptions: No Action cholecalciferol (vitamin D3) 25 mcg (1,000 unit) capsule 25 mcg PO QDAY [id number] 27 mg iron-800 mcg-260 mg capsule PO (DME) Dexcom G7 Sensor Device See Rx Instructions .Route Qty: 1 12RF Rx Instructions: As directed (DME) Dexcom G7 Automobile Damage Field Appraiser Misc See Rx Instructions .Route Qty: 1 0RF Rx Instructions: As directed record fasting and 2 hours after bkfst, lunch, dinner. (DME) blood-glucose meter Misc See Rx Instructions .ROUTE .MEDSUPPLY Qty: 1 0RF Rx Instructions: As directed (DME) Blood Glucose Test Strip See Rx Instructions .ROUTE .MEDSUPPLY Qty: 120 6RF Rx Instructions: Check blood sugars Fasting and 2 hours after breakfast, lunch, and dinner. (DME) lancets [Droplet Lancets] 30 gauge misc See Rx Instructions .ROUTE .MEDSUPPLY Qty: 200 6RF Rx Instructions: Check blood sugars fasting and 2 hours after breakfast, lunch, and supper. Primary Care Provider: Ranulfo Crook Referrals: Ranulfo Crook MD [Primary Care Provider, Family Practice] June Navas MD [Med Staff - Active Staff, Obstetrics-Gynecology (OBGYN)] - 1-2 Weeks Print Language: Upper Sorbian Disposition Disposition: Home, Self Care
[2025-03-08 13:20] VITALS: BP 111/81; PULSE 73; RESP 16; TEMP 36.6; O2SAT 97
== END 2025-03-08 13:31 | disposition home or self-care (01) ==
PROVIDERS: Emergency Provider Emergency Medicine; PCP Family Medicine; Visit Provider Emergency Medicine
DX: O20.0 Threatened abortion (principal); Z90.49 Acquired absence of other specified parts of digestive tract; O99.891 Other specified diseases and conditions complicating pregnancy; R79.89 Other specified abnormal findings of blood chemistry; Z3A.01 Less than 8 weeks gestation of pregnancy
CPT/HCPCS: 76817; 99282

== ENCOUNTER 2025-03-10 12:08 | Outpatient (RCR) | payer OTHER, SELFPAY | END 2025-03-20 23:59 | LOC: NS 12:08 | PROVIDERS: PCP Family Medicine; Referring Provider Obstetrics & Gynecology; Visit Provider Obstetrics & Gynecology | DX: Z71.3 Dietary counseling and surveillance (principal); O24.319 Unspecified pre-existing diabetes mellitus in pregnancy, unspecified trimester; Z3A.00 Weeks of gestation of pregnancy not specified | CPT/HCPCS: 97802 ==

== ENCOUNTER → 2025-03-14 | Outpatient (CLI) | payer OTHER, SELFPAY ==
[2025-03-14 12:23] LABS: Hematocrit 42.2 % (37-47); Hemoglobin 14.1 g/dL (12.0-15.0); Immature Granulocytes Count 0.040 X10^3/uL (0.0-0.0); Mean Corp Hgb Conc 33.4 g/dL (32-36); Mean Corpuscular Volume 86.3 fL (81-99); Mean Platelet Vol. 9.8 fl (6.2-12.0); NRBC Flagged by Analyzer 0 % (0-5); Platelet Count 322 K/mm3 (150-450); RBC Distribution Width CV 12.4 % (11.6-14.6); RBC Distribution Width SD 39.0 fl (35.1-43.9); Red Blood Count 4.89 M/mm3 (4.2-5.4); White Blood Count 12.2 K/mm3 (4.4-11.0)
[2025-03-14 12:47] LABS: Barbiturate Urine NEGATIVE (< 200 ng/mL); Benzodiazepine Urine NEGATIVE (< 200 ng/mL); PCP Urine NEGATIVE (< 25 ng/mL); THC Urine NEGATIVE (< 50 ng/mL)
[2025-03-14 13:10] LABS: HIV Nonreactive (Nonreactive); Hepatitis B Surface Antigen Nonreactive (Nonreactive); Hepatitis C Antibody Nonreactive (Nonreactive); Syphilis Antibodies Nonreactive (Nonreactive)
[2025-03-15 21:08] LABS: Chlamydia By Nucleic Acid AMP Negative (Negative); Gonococcus By Nucleic Acid AMP Negative (Negative)
== END | disposition home or self-care (01) ==
PROVIDERS: PCP Family Medicine; Visit Provider Student in an Organized Health Care Education/Training Program
DX: O09.90 Supervision of high risk pregnancy, unspecified, unspecified trimester (principal); Z3A.00 Weeks of gestation of pregnancy not specified; O99.210 Obesity complicating pregnancy, unspecified trimester; O24.319 Unspecified pre-existing diabetes mellitus in pregnancy, unspecified trimester; O99.320 Drug use complicating pregnancy, unspecified trimester; F12.91 Cannabis use, unspecified, in remission
CPT/HCPCS: 36415; 80307; 83036; 84439; 84443; 85025; 86703; 86762; 86780; 86803; 86850; 86900; 86901; 87086; 87088; 87340; 87491; 87591

== ENCOUNTER 2025-03-16 14:55 | Emergency (ER) | payer OTHER, SELFPAY ==
[2025-03-16 14:56] VITALS: BP 156/89; PULSE 105; RESP 26; TEMP 36.1; O2SAT 100; BMI 36.5
--- NOTE | 2025-03-16 15:13 | US_ITS ---
PROCEDURE: TRANSVAGINAL W/PREG US 03/16/2025 REASON FOR EXAM: PREG AND BLEEDING TECHNIQUE: Procedure Code: [id number] Modality: US Procedure: TRANSVAGINAL W/PREG US COMPARISON: Pelvic ultrasound 03/08/2020 and 02/23/2020 FINDINGS The uterus measures 10.0 x 8.0 x 6.1 cm. A gestational sac is identified within the uterus. The mean sac diameter measures 2.5 cm and corresponds to a gestational age of 7 weeks 4 days. Within this gestational sac, a pole and yolk sac are identified. The crown rump length measures 1.6 cm and corresponds to a gestational age of 7 weeks 6 days. Real-time examination confirms cardiac activity with a heart rate of 162 bpm. The right ovary measures 3.3 x 2.8 x 2.7 cm and is normal in appearance. The left ovary is not visualized. No adnexal masses are seen. There is no fluid in the cul-de-sac. US/Transvaginal w/Preg US IMPRESSION: Live intrauterine with a gestational age of 7 weeks 5 days. The gestational age based on the LMP is: 7 weeks 5 days. The estimated sonographic delivery date is: 10/28/2025. Complete anatomical assessment should be performed at 19-20 wks. Reading Location[facility]
--- NOTE | 2025-03-16 15:18 | ED.VIS.FEGU ---
HPI HPI - Female History of Present Illness Chief Complaint: Vag Bld, Preg Informant: patient Pain Pain: Negative for Pelvic Pain, Vulvar Pain or Vaginal Pain Bleeding Issue: Positive for Vaginal bleeding and Passing clots (Small dime size clots. Spotting yesterday.) Onset: Today and Yesterday Context: Gradual Onset Timing: Intermittent Current Severity: Spotting and Mild Associated Symptoms Associated Symptoms: Negative for Dysuria, Frequency or Urgency Test: Positive Sexually: Positive for Active Control: No control P: 0 Ab: 1 Narrative Narrative: 30-year-old female history of diabetes, bicornate uterus. Approximately 8 weeks . G2, P0 Ab1 with that being a miscarriage around 7 weeks previously. She had a D&C. She has had a prior appendectomy. Has a due date of around October 28, 2025. She had vaginal spotting and bleeding today with dime size clots. Her blood type is O+. Her quant 2 weeks ago was 5134. She has an ultrasound during this which showed a single live IUP. She really denies any pelvic pain. She denies any fever or dysuria. Prior similar symptoms: Yes Recent Illness/Hospitalization: No PFSH PFSH Medical History Hx of infertility Asthma Bicornate uterus Polycystic ovarian syndrome Anxiety Migraine Home Medications ?Medication ?Instructions ?Recorded ?Last Taken ?Type PNV no.151-iron 27 mg-folic 800 1 cap PO QHS 02/28/25 03/15/25 History mcg-omega3 260 ae-plg-ugm-fish capsule cholecalciferol (vitamin D3) 25 25 mcg PO QDAY 02/28/25 03/15/25 History mcg (1,000 unit) capsule blood sugar diagnostic (Blood #120 ea 03/02/25 Unknown Rx Glucose Test strips) blood-glucose meter #1 ea 03/02/25 Unknown Rx lancets 30 gauge (Droplet Lancets) #200 ea 03/02/25 Unknown Rx blood-glucose sensor (Dexcom G7 03/16/25 Unknown History Sensor device) blood-glucose,wire mesh gate assembler,cont 03/16/25 Unknown History (Dexcom G7 Sales Agent [employer]) folic acid 1 mg tablet 5 mg PO DAILY 03/16/25 Unknown History insulin NPH isoph U-100 human 100 30 unit subcut DAILY 03/16/25 Unknown History unit/mL (3 mL) subcutaneous pen (Novolin N FlexPen) insulin aspart U-100 100 unit/mL 10 unit subcut QHS 03/16/25 03/16/25 History (3 mL) subcutaneous pen (Novolog FlexPen U-100 Insulin aspart) insulin lispro 100 unit/mL 10 unit subcut DAILY 03/16/25 03/15/25 History subcutaneous pen pen needle, diabetic 31 gauge x 03/16/25 Unknown History 07/04 (Unifine Pentips Plus) Allergy/AdvReac Type Severity Reaction Status Date / Time aspirin (ASA) Allergy Hives Verified 03/16/25 14:57 bee venom protein (honey Allergy Anaphylaxis Verified 03/16/25 14:57 bee) (bee sting) ibuprofen Allergy Hives Verified 03/16/25 14:57 iodine Allergy Hives Verified 03/16/25 14:57 Sulfa (Sulfonamide Allergy Anaphylaxis Verified 03/16/25 14:57 Antibiotics) Family History Father Diabetes Grandmother Brain cancer, Onset Age: 93 Paternal Uncle Brain cancer, Onset Age: 30 Maternal Grandmother Ovarian cancer, Onset Age: 70 Surgical History Hx of appendectomy H/O dilation and curettage Social History adopted: No household members: spouse housing: house number of children: 0 current occupational status: employed current occupation: [employer] current occupational exposures/hazards: No pets and animals: Yes (Avoid litterbox) pets and animals: cat(s), dog(s) and iguana(s) history of recent travel: Yes (- November & December) out of state: Yes out of country: No sexually active: Yes Smoking Status: Never smoker alcohol intake: current alcohol intake frequency: holidays/special occasions only details: not while substance use type: marijuana diet: gluten free well-balanced diet: daily or most days caffeine: No eating out: rarely or never during the past year weight has: decreased > 10 lbs what type of physical activity do you participate in: walking frequency: daily duration: 15-30 minutes/day sharron/sikh: Bahai seatbelt use: always do you feel safe at home: Yes additional social history: Adilia BHATT dietary ROS ROS ED ROS Narrative Vaginal bleeding. No pain. No fever. No dysuria. Constitutional Constitutional ED: Denies chills or fever(s) Eyes Eyes: Denies blurry vision ENT ENT ED: Denies ear pain Cardiovascular Cardiovascular: Denies chest pain Respiratory/Chest Respiratory/Chest: Denies cough or dyspnea Gastrointestinal Gastrointestinal: Denies abdominal pain, constipation, diarrhea, melena or nausea Genitourinary Genitourinary ED: Denies dysuria, hematuria or urinary frequency Musculoskeletal Musculoskeletal: Denies arthralgias or myalgias Integumentary Denies abscess Neurologic Neurologic: Denies headache(s) Psychiatric Psychiatric: Denies anxiety or depression Endocrine Endocrinology: Denies heat intolerance Hematologic/Lymphatic Hematologic/Lymphatic: Denies easy bleeding Allergic/Immunologic Allergic/Immunologic ED: Denies mouth swelling EXAM Physical Exam Narrative Exam Narrative: 30-year-old female sitting upright in bed vital signs stable afebrile. No acute distress. Significant other at bedside. H EENT exam pupils round react light. Moist mucous membranes. Lungs clear to auscultation bilaterally. Heart rate about 100 no murmur. Chest wall ribs nontender. Back nontender. Abdomen soft nontender, nondistended, normal bowel sounds without peritoneal signs. No suprapubic tenderness. Moving all 4 extremities. Normal strength. Normal range of motion. No edema. Neurologically she is awake alert. Answering questions following commands. Const Vital Signs: 03/16/25 14:56 Temperature 97 F L Temperature Source Temporal Pulse Rate 105 H Respiratory Rate 26 H Blood Pressure 156/89 H Blood Pressure Mean 111 Pulse Ox 100 Oxygen Delivery Method Room Air MDM MDM MDM Narrative Medical decision making narrative: 30-year-old female G2, P0 Ab1 with having a miscarriage at 7 weeks. Known history of bicornate uterus. She is diabetic. She has had a prior D&C and a prior appendectomy. Presents around 8 weeks with spotting and dime size clots today. Ultrasound be obtained. She had unknown blood type of O+. She had a quant 2 weeks ago of 5134. Repeat exam patient is doing well at 5:04 PM. We discussed her ultrasound results which show a single live IUP at 7 weeks and 5 days. With a due date of 10/28/2025. With a heart rate of 162. Patient be discharged home. Treated as a threatened miscarriage. Follow-up with her AUGER PRESS OPERATOR. Knows to return if worse. History & Record Review Discussion w/independent historian: Patient and Family Additional record(s) reviewed:: Prior outpatient record, Prior ED visit and Prior labs Radiography Diagnostic Testing: Clinical Impression(s) from Imaging Studies Obstetrics Ultrasound 03/16/25 15:13 IMPRESSION: Live intrauterine with a gestational age of 7 weeks 5 days. The gestational age based on the LMP is: 7 weeks 5 days. The estimated sonographic delivery date is: 10/28/2025. Complete anatomical assessment should be performed at 19-20 wks. Reading Location: [facility] Discharge Plan Triage Chief Complaint: Vag Bld, Preg ED Provider: Baldemar Hurtado Dx/Rx/DC Orders Clinical Impression: First trimester , Vaginal bleeding, Threatened miscarriage Instructions: Miscarriage Threatened Prescriptions: No Action cholecalciferol (vitamin D3) 25 mcg (1,000 unit) capsule 25 mcg PO QDAY [id number] 27 mg iron-800 mcg-260 mg capsule 1 cap PO QHS Novolin N FlexPen 100 unit/mL (3 mL) insulin pen 30 unit SUBCUT DAILY Patient Comments: Inject subcutaneously 30 Units every morning, 10 Units at bedtime insulin aspart U-100 [Novolog FlexPen U-100 Insulin] 100 unit/mL (3 mL) insulin pen 10 unit subcut QHS Patient Comments: Inject subcutaneously 30 Units every morning, 10 Units at bedtime (DME) pen needle, diabetic [Unifine Pentips Plus] 31 gauge x 3/16 needle MISCELLANEOUS Patient Comments: As directed with insulin (DME) Dexcom G7 Sensor Device MISCELLANEOUS Patient Comments: [NO ORIGINAL SIG] (DME) Dexcom G7 Sales Agent [employer] Misc MISCELLANEOUS Patient Comments: [NO ORIGINAL SIG] folic acid 1 mg tablet 5 mg PO DAILY insulin lispro 100 unit/mL insulin pen 10 unit subcut DAILY Patient Comments: AFTERNOON (DME) blood-glucose meter Misc See Rx Instructions .ROUTE .MEDSUPPLY Qty: 1 0RF Rx Instructions: As directed (DME) Blood Glucose Test Strip See Rx Instructions .ROUTE .MEDSUPPLY Qty: 120 6RF Rx Instructions: Check blood sugars Fasting and 2 hours after breakfast, lunch, and dinner. (DME) lancets [Droplet Lancets] 30 gauge misc See Rx Instructions .ROUTE .MEDSUPPLY Qty: 200 6RF Rx Instructions: Check blood sugars fasting and 2 hours after breakfast, lunch, and supper. Primary Care Provider: Ranulfo Crook Referrals: Ranulfo Crook MD [Primary Care Provider, Family Practice] June Navas MD [[facility] Staff - Active Staff, Obstetrics-Gynecology (OBGYN)] - As soon as possible Activity Restrictions/Additional Instructions: Plenty of fluids and rest. Avoid lifting more than 10 pounds. No heavy exertion. No intercourse. Follow-up with your AUGER PRESS OPERATOR next week. Your ultrasound looked good. Print Language: Icelandic Disposition Disposition: Home, Self Care
[2025-03-16 16:55] VITALS: BP 116/85; PULSE 92; RESP 16
[2025-03-16 17:13] VITALS: BP 116/85; PULSE 92; RESP 16; TEMP 36.1; O2SAT 100
== END 2025-03-16 17:13 | disposition home or self-care (01) ==
PROVIDERS: Emergency Provider Emergency Medicine; PCP Family Medicine; Visit Provider Emergency Medicine
DX: O20.0 Threatened abortion (principal); Z79.4 Long term (current) use of insulin; Z3A.01 Less than 8 weeks gestation of pregnancy; O24.111 Pre-existing type 2 diabetes mellitus, in pregnancy, first trimester; Z3A.08 8 weeks gestation of pregnancy; Z90.49 Acquired absence of other specified parts of digestive tract; O99.341 Other mental disorders complicating pregnancy, first trimester; F41.9 Anxiety disorder, unspecified
CPT/HCPCS: 76817; 99282

== ENCOUNTER 2025-03-28 08:56 | Day surgery (SDC) | payer OTHER, SELFPAY ==
[2025-03-28] VITALS (9 sets, daily range): BP systolic 114–146; BP diastolic 69–106; PULSE 86–115; RESP 16–20; TEMP 36.4–37.6; O2SAT 97–100; BMI 36.2
[2025-03-28 09:44] LABS: Hematocrit 43.2 % (37-47); Hemoglobin 14.3 g/dL (12.0-15.0); Immature Granulocytes Count 0.040 X10^3/uL (0.0-0.0); Mean Corp Hgb Conc 33.1 g/dL (32-36); Mean Corpuscular Volume 86.1 fL (81-99); Mean Platelet Vol. 8.9 fl (6.2-12.0); NRBC Flagged by Analyzer 0 % (0-5); Platelet Count 358 K/mm3 (150-450); RBC Distribution Width CV 12.7 % (11.6-14.6); RBC Distribution Width SD 40.0 fl (35.1-43.9); Red Blood Count 5.02 M/mm3 (4.2-5.4); White Blood Count 8.6 K/mm3 (4.4-11.0)
[2025-03-28] MEDS: Lactated Ringers 1,000 ML 15 ML IV (09:44)
--- NOTE | 2025-03-28 09:49 | PCM.PRE.AN2 ---
ASA Classification* ASA Classification ASA Classification: 2 Assessment & Plan Anesthesia* Anesthesia Assessment Anesthesia Assessment: Discussed sedation and/or anesthesia options, risks, benefits, and alternatives with patient/parents/legal guardian/POA. Questions invited. The patient/parents/legal guardian/POA seems to understand and agrees to proceed with anesthesia plan. Reviewed the physical assessment, medical history, allergy history and patient home medications list prior to surgery/procedure/anesthetic and documented any changes. Performed airway and anesthesia risk assessments. Anesthesia Type Anesthesia Type: MAC Anesthesia Focused Assessment* Temperature: 98.2 F Pulse Rate: 105 Blood Pressure: 146/90 Respiratory Rate: 16 Pulse Ox: 100 Airway Assessment Mouth opens: >3 cm Mallampati Score: II Labs Anesthesia Preop lab: CBC WBC, (4.4-11.0) 8.6 K/mm3 Today, 09:20 RBC, (4.2-5.4) 5.02 M/mm3 Today, 09:20 Hgb, (12.0-15.0) 14.3 g/dL Today, 09:20 Hct, (37-47) 43.2 % Today, 09:20 Plt Count, (150-450) 358 K/mm3 Today, 09:20 CHEMISTRY Potassium, (3.3-5.1) 3.8 mmol/L 02/28/25, 08:35 Sodium, (133-145) 135 mmol/L 02/28/25, 08:35 BUN, (4-19) 8 mg/dL 02/28/25, 08:35 Creatinine, (0.70-1.20) 0.64 mg/dL L 02/28/25, 08:35 Glucose, (70-99) 217 mg/dL H 02/28/25, 08:35 TSH, (0.300-4.200) 1.490 uIU/mL 03/14/25, 10:10 COAG HCG, Quant, (<9 non-preg) 5134 mIU/mL H 02/28/25, 08:35 Pre-Assessment Diagnosis/Proposed Procedure Planned Operative Procedure(s): suction d&c Anesthesia History 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 When Was Last Pacemaker Check QUESTION #4 FULL TEXT: You/Your Family Experience fever (hyperthermia) with Anesthesia Last Oral Intake Last Oral intake: Last Oral Intake NPO since 23:00 03/28/25 09:31 Meds taken in AM with sips of No 03/28/25 09:31 water? 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 Female Yes 03/28/25 09:31 HX of Motion Sickness No 03/28/25 09:31 HX of N/V After Surgery No 03/28/25 09:31 Non-Smoker Yes 03/28/25 09:31 Duration of Surgery greater No 03/28/25 09:31 than 60 minutes Number of Risk Factors 2 03/28/25 09:31 PONV Score Moderate Risk 03/28/25 09:31 Height & Weight Height & Weight: Anesthesia: Height & Weight Height 5 ft 8 in 03/28/25 09:31 Weight: 108.2 kg 03/28/25 09:31 Body Mass Index (BMI) 36.2 03/28/25 09:31 Respiratory Assessment Respiratory Assessment - crusher loader operator: Respiratory Tract Infection Hx - crusher loader operator Hx Respiratory Tract Infection Yes: cough starting 03/2703/28/25 09:31 STOP Sleep Apnea STOP Sleep Apnea - crusher loader operator: STOP Sleep Apnea - crusher loader operator Hx Hypertension No 03/28/25 09:31 Hx Sleep Apnea No 03/28/25 09:31 CPAP BIPAP Do you snore loudly (louder No 03/28/25 09:31 than talking or can be heard Do you often feel tired/ No 03/28/25 09:31 fatigued/ sleepy during daytime? Has anyone observed you stop No 03/28/25 09:31 breathing during sleep? STOP Results Negative 03/28/25 09:31 QUESTION #5 FULL TEXT : Do you snore loudly (louder than talking or can be heard through closed doors)? 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 Specify any problems Hx of Preganancy in last 3 No 03/28/25 09:31 Months Nurse Filling Out Transfusion [id number] 03/28/25 09:31 & Questions: Date: 03/28/25 12 09:31 Time: 09:32 03/28/25 09:31 Patient unable to answer at this time (ie. 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: /Reproductive Hx- crusher loader operator Hx Now Gestational Age (in weeks): EDC: Hx Hx Para Hx Section SAB No 03/25/25 14:32 Does the father of the baby or his family experience fever w Father of the baby Malignant Hypertension history comment Active Medications Active Medications: Current Medications Generic Name Dose Route Start Last Admin Trade Name Freq PRN Reason Stop Dose Admin Doxycycline Monohydrate 100 mg 03/28/25 07:30 03/28/25 09:43 Doxycycline 100 Mg Capsule PO 100 mg X1 ALEX Administration Lactated Ringer's 1,000 mls @ 15 mls/hr 03/28/25 09:15 03/28/25 09:44 IV 15 mls/hr .Q48H ALEX Administration PFSH Medical History Thyroid disease Anemia Back pain Injury of head and neck Seizures Gastric reflux History of irregular heartbeat Cardiology follow-up encounter Hx of infertility Asthma Bicornate uterus Polycystic ovarian syndrome Anxiety Migraine Home Medications ?Medication ?Instructions ?Recorded ?Last Taken ?Type cholecalciferol (vitamin D3) 25 25 mcg PO QDAY 02/28/25 03/15/25 History mcg (1,000 unit) capsule blood sugar diagnostic (Blood #120 ea 03/02/25 Unknown Rx Glucose Test strips) blood-glucose meter #1 ea 03/02/25 Unknown Rx lancets 30 gauge (Droplet Lancets) #200 ea 03/02/25 Unknown Rx blood-glucose sensor (Dexcom G7 03/16/25 Unknown History Sensor device) blood-glucose,rehabilitation program manager,cont 03/16/25 Unknown History (Dexcom G7 Operating Room Orderly) folic acid 1 mg tablet 5 mg PO DAILY 03/16/25 Unknown History insulin lispro 100 unit/mL 10 unit subcut DAILY 03/16/25 03/15/25 History subcutaneous pen pen needle, diabetic 31 gauge x 03/16/25 Unknown History 07/04 (Unifine Pentips Plus) insulin NPH isoph U-100 human 100 36 unit subcut BID 03/25/25 Unknown History unit/mL (3 mL) subcutaneous pen (Novolin N FlexPen) topiramate 25 mg tablet (Topamax) 75 mg PO TID 03/28/25 Unknown History Allergy/AdvReac Type Severity Reaction Status Date / Time aspirin (ASA) Allergy Hives Verified 03/28/25 09:28 bee venom protein (honey Allergy Anaphylaxis Verified 03/28/25 09:28 bee) (bee sting) ibuprofen Allergy Hives Verified 03/28/25 09:28 iodine Allergy Hives Verified 03/28/25 09:28 Sulfa (Sulfonamide Allergy Anaphylaxis Verified 03/28/25 09:28 Antibiotics) Family History Father Diabetes Grandmother Brain cancer, Onset Age: 93 Paternal Uncle Brain cancer, Onset Age: 30 Maternal Grandmother Ovarian cancer, Onset Age: 70 Surgical History Hx of appendectomy H/O dilation and curettage Social History adopted: No household members: spouse housing: house number of children: 0 current occupational status: employed current occupation: [employer] current occupational exposures/hazards: No pets and animals: Yes (Avoid litterbox) pets and animals: cat(s), dog(s) and iguana(s) history of recent travel: Yes (November & December) out of state: Yes out of country: No sexually active: Yes Smoking Status: Never smoker alcohol intake: current alcohol intake frequency: holidays/special occasions only details: not while substance use type: marijuana diet: gluten free well-balanced diet: daily or most days caffeine: No eating out: rarely or never during the past year weight has: decreased > 10 lbs what type of physical activity do you participate in: walking frequency: daily duration: 15-30 minutes/day sharron/hinduism: Sabianist seatbelt use: always do you feel safe at home: Yes additional social history: Ifeanyi- [facility] dietary Review of Systems (Anesthesia) ROS Narrative System reviewed and no additional complaints, except as documented.
[2025-03-28 10:12] LABS: AST(SGOT) 35 U/L (<=31); Alanine Aminotransfer ALT/SGPT 64 U/L (<=34); Albumin, Serum 4.4 g/dL (3.5-5.0); Alkaline Phosphatase 49 U/L (35-104); Anion Gap 13 (5-15); BUN 6 mg/dL (4-19); BUN/Creat Ratio 9.9 RATIO (10-20); Calcium,Total 9.2 mg/dL (7.6-11.0); Carbon Dioxide 19.9 mmol/L (21.0-32.0); Chloride 102 mmol/L (98-108); Estimated Creatinine Clearance 189.33 ml/min (50-250); Globulin 3.6 g/dL (2.2-4.2); Glucose 160 mg/dL (70-99); Potassium 3.7 mmol/L (3.3-5.1)
--- NOTE | 2025-03-28 11:00 | POC_PTH ---
PATIENT: BEATRIZ JACKMAN [place] [facility] [id number] AGE/SX: 30/F ROOM: RE03/28/[address]: Dr. June Navas MD : 1995 BED: DIS: 03/28/2025 SPEC #: [id number] RECD: 03/28/25 12:29 STATUS: NELLI REJuan #: [id number] ISMA: 03/28/25 11:[address]: June Navas DEPT: SURGICAL PATHOLOGY RECD BY: Randi Jones ENTERED: 03/28/25 13:13 SP TYPE: PROD CONC OTHR DR: Dr. Ranulfo Crook MD Tissues: Product of conception, NOS Procedures: Surgery Specimen Level IV HEADER OPERATION: Dilation and curettage, suction, ANORA PRE-OP DIAGNOSIS: Missed , 8 weeks TISSUE SUBMITTED: A- Products of conception MICROSCOPIC DIAGNOSIS A. Uterine contents, suction curettage: - Decidua, immature chorionic villi, and hypersecretory endometrium, consistent with products of conception. MICROSCOPIC DESCRIPTION Slides are reviewed. GROSS DESCRIPTION A. Received fresh labeled with the patient's name and date of . Designated products of conception is an 8.8 x 8.0 x 1.3 cm aggregate of pink- red tissue fragments and clotted blood. parts are not identified. Portions are collected for Anora testing. City Planning Aide sections are submitted in 3 cassettes. AR 03/28/2025PT:[id number]
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
[2025-03-28] MEDS: Lactated Ringers 1,000 ML 1000 ML IV (11:48)
[2025-03-28] MEDS: Midazolam 2 MG/2 ML Syringe IV (11:52)
[2025-03-28] MEDS: Lidocaine 1% (5 ml sdv) 5 ML Vial IV (11:53)
[2025-03-28] MEDS: fentaNYL 100 MCG/2 ML Ampul IV (11:58)
[2025-03-28] MEDS: 0.9% Normal Saline (1000mL) 200 ML IV (12:16)
--- NOTE | 2025-03-28 12:24 | OP.PCM_ITS ---
Procedures Urinary/Genital 52xxx-59xxx: [id number] Trmt of incomplete Ab, any TM Operative Report (Standard) Operative Information Date of Procedure: 03/28/25 Pre-Operative Diagnosis: missed ab Post-Operative Diagnosis: same Surgery/Procedure Performed: suction d and c head sugar reprocess operator: No Type of Anesthesia: General RN Documented Start/Stop Times: Operation Date: 03/28/25 11:00 Case Time Into Pre-Op 03/28/25 09:06 Out of Pre-Op 03/28/25 11:40 Anesthesia Start 03/28/25 11:45 Into Room 03/28/25 11:45 Procedure Start 03/28/25 12:06 Procedure Start Time: 12:06 Procedure Stop Time: 12:19 Select all DRAINS/GRAFTS/IMPLANTS that apply: None Estimated Blood Loss: 100 Specimen collected: Yes Description of specimen(s) removed: retained POC Description of surgery: Patient was taken to the operating room and placed under MAC local anesthesia. She was prepped and draped in the normal sterile fashion the dorsal lithotomy position. Bladder was drained of clear urine and anterior lip of the cervix was grasped and the uterus sounded to 9 cm. Cervix was progressively dilated to allow passage of a 9mm suction curette. Progressive passes were made removing the retained products of conception without complication. Sharp curettage confirmed complete removal of the retained products, the uters was noted to have some additional bleeding so cytotec and pitocin were given, TXA ordered. bleeding controlled and patient was stable. All instruments were removed from the vagina and excellent hemostasis was noted and the patient was taken to recovery in stable condition. Surgical Findings: 8 week missed ab Complications Complications: No
--- NOTE | 2025-03-28 12:27 | DCINST_ITS ---
Discharge Instructions DC O2, CPAP, BIPAP needs Home O2 Discharge instructions: No Dressing / Incision Discharge Activity: Return to Normal Activity, May Shower and May Take a Tub Bath (after 1 week) May resume sexual activity in: 1-2 weeks Weight Bearing Status: Weight bearing as tolerated Lifting Restrictions: none Dressing / Incision Call your doctor if you observe: Fever of 101 or Higher, Using more than 1 pad per hour, Shortness of breath and Uncontrolled pain Follow Up Care Please Follow Up With: June Navas MD When: Call [phone] to schedule appointment. Test Results: Test results from this visit will be discussed in further detail at your follow- up appointment, if applicable. Discharge Plan Admission Attending Provider: June Navas Primary Care Provider: Ranulfo Crook Instructions Print Language: Bulgarian Discharge Orders/Prescriptions Prescriptions: No Action cholecalciferol (vitamin D3) 25 mcg (1,000 unit) capsule 25 mcg PO QDAY (DME) pen needle, diabetic [Unifine Pentips Plus] 31 gauge x 3/16 needle MISCELLANEOUS Patient Comments: As directed with insulin (DME) Dexcom G7 Sensor Device MISCELLANEOUS Patient Comments: [NO ORIGINAL SIG] (DME) Dexcom G7 Fishery Division Chief Misc MISCELLANEOUS Patient Comments: [NO ORIGINAL SIG] folic acid 1 mg tablet 5 mg PO DAILY insulin lispro 100 unit/mL insulin pen 10 unit subcut DAILY Patient Comments: AFTERNOON Novolin N FlexPen 100 unit/mL (3 mL) insulin pen 36 unit SUBCUT BID Patient Comments: Inject subcutaneously 36 Units every morning, 16 Units at bedtime topiramate [Topamax] 25 mg tablet 75 mg PO TID (DME) blood-glucose meter Misc See Rx Instructions .ROUTE .MEDSUPPLY Qty: 1 0RF Rx Instructions: As directed (DME) Blood Glucose Test Strip See Rx Instructions .ROUTE .MEDSUPPLY Qty: 120 6RF Rx Instructions: Check blood sugars Fasting and 2 hours after breakfast, lunch, and dinner. (DME) lancets [Droplet Lancets] 30 gauge misc See Rx Instructions .ROUTE .MEDSUPPLY Qty: 200 6RF Rx Instructions: Check blood sugars fasting and 2 hours after breakfast, lunch, and supper. Referrals / Follow Up: Ranulfo Crook MD [Primary Care Provider, Family Practice] Disposition Disposition (needs filled in before D/C Order can be placed): Home, Self Care
[2025-03-28] MEDS: TRANEXAMIC ACID 1,000 MG/10 ML ML 1000 MG IV (12:31)
--- NOTE | 2025-03-28 12:40 | PCM.POST.ANE ---
Anesthesia: Postop Eval I Current Vital Signs Temperature: 98.4 F Pulse Rate: 97 Blood Pressure: 124/73 Respiratory Rate: 20 Pulse Ox: 97 Oxygen Delivery Method: Room Air Assessment Airway patent: Yes Spontaneous unlabored respirations: Yes Mental status: Awake nausea: No Vomiting: No Anesthesia Complication: No Fluid Hydration Crystalloid volume administer (ml): 1,200 Total IV fluid infused: 1,200 Progress Note Anesthesia document: Postop Eval 1 completed: Yes
[2025-03-28] MEDS: FLUCONAZOLE 150 MG TABLET PO (13:26)
[2025-03-28] MEDS: HYDROcodone Bitartrate/Apap 5/325 Tablet PO (13:27)
== END 2025-03-28 14:49 | disposition home or self-care (01) ==
LOC: SDC 08:57 → AC 08:59
PROVIDERS: PCP Family Medicine; Referring Provider Obstetrics & Gynecology; Visit Provider Obstetrics & Gynecology
PROC: (CPT 59812; principal; 2025-03-28 10:45)
DX: O02.1 Missed abortion (principal); Z79.4 Long term (current) use of insulin; E11.9 Type 2 diabetes mellitus without complications; J45.909 Unspecified asthma, uncomplicated; Z87.59 Personal history of other complications of pregnancy, childbirth and the puerperium; O24.311 Unspecified pre-existing diabetes mellitus in pregnancy, first trimester; E66.9 Obesity, unspecified; E03.9 Hypothyroidism, unspecified; O99.511 Diseases of the respiratory system complicating pregnancy, first trimester; O99.281 Endocrine, nutritional and metabolic diseases complicating pregnancy, first trimester; O99.211 Obesity complicating pregnancy, first trimester; K21.9 Gastro-esophageal reflux disease without esophagitis; O99.611 Diseases of the digestive system complicating pregnancy, first trimester
CPT/HCPCS: 59812; 01965; 80053; 82962; 85025; 86850; 86900; 86901; 88305; A4216; J2405